=== PATIENT | female | born 1950 | race Caucasian/White ===

== ENCOUNTER 2017-04-28 07:26 | Emergency (ER) | payer BC ==
[~2017-04-28] VITALS: Ht 172.7 cm; Wt 95.0 kg
[~2017-04-28 07:26] MED LIST: (None)3.5 GM OP; ALLEGRA180 MG OR; ALLOPURINOL100 MG PO; ASA LOW DOSE81 MG OR; CENESTIN1.25 MG OR; DILTIAZEM180 M1 PO; DIOVAN HC1 PO; FISH OIL1000 MG OR; FLUOXETINE20 MG PO; GENTAMICIN15 ML/BTL OP; GLIMEPIRIDE4 MG PO; ISOSORB MONO30 MG PO; JANUMET1 TA1 PO; LOPRESSOR50 MG OR; LOTREL1 CA1 OR; LYRICA75 MG OR; METFORMIN1000 MG OR; METOPROL TAR25 MG PO; NEURONTIN300 MG OR; PERCOCET 5/325M1 TAB OR; PRAVACHOL40 MG OR; TESSALON PER100 MG PO; THERACRAN650 MG PO; VOLTAREN75 MG OR; ZANTAC150 M1 OR; ZITHROMAX250 MG PO
[2017-04-28] MEDS ORDERED: ASPIRIN81 MG PO (07:37)
[2017-04-28] MEDS ORDERED: PLAVIX75 MG PO (07:38)
[2017-04-28] MEDS ORDERED: FLUOXETINE20 MG PO (07:42)
[2017-04-28] MEDS ORDERED: PRAVASTATIN SOD10 MG PO (07:43)
[2017-04-28] MEDS ORDERED: HYDRALAZINE50 MG PO (07:45)
[2017-04-28] MEDS ORDERED: AMBIEN5 MG PO (07:45)
[2017-04-28 08:27] VITALS: BP 183/99
== END 2017-04-28 08:36 | disposition home or self-care (01) | DRG 921 ==
LOC: ED 07:26
DX: L76.21 Postprocedural hemorrhage of skin and subcutaneous tissue following a dermatologic procedure (principal); I10 Essential (primary) hypertension; E11.9 Type 2 diabetes mellitus without complications; E78.5 Hyperlipidemia, unspecified; Y83.8 Other surgical procedures as the cause of abnormal reaction of the patient, or of later complication, without mention of misadventure at the time of the procedure; Z86.73 Personal history of transient ischemic attack (TIA), and cerebral infarction without residual deficits; Z79.02 Long term (current) use of antithrombotics/antiplatelets; Z85.820 Personal history of malignant melanoma of skin

== ENCOUNTER 2019-08-18 00:41 | Emergency (ER) | payer BC ==
[~2019-08-18] VITALS: Ht 172.7 cm; Wt 93.2 kg
[~2019-08-18 00:41] MED LIST changes: +AMBIEN5 MG PO; +ASPIRIN81 MG PO; +HYDRALAZINE50 MG PO; +PLAVIX75 MG PO; +PRAVASTATIN SOD10 MG PO
[2019-08-18] MEDS ORDERED: FISH OIL1 CAP PO (01:13)
[2019-08-18] MEDS ORDERED: ESTER-C500 M2 PO (01:13)
[2019-08-18] MEDS ORDERED: LUNESTA3 MG PO (01:14)
[2019-08-18] MEDS ORDERED: HYDRALAZINE HYD50 MG PO (01:15)
[2019-08-18] MEDS ORDERED: ISOSORB MONO120 MG PO (01:15)
[2019-08-18] MEDS ORDERED: LEVOCETIRIZINE D5 MG PO (01:16)
[2019-08-18] MEDS ORDERED: PROTONIX40 MG PO (01:17)
[2019-08-18] MEDS ORDERED: METOPROL TAR100 MG PO (02:41)
[2019-08-18] MEDS ORDERED: BENICAR40 MG PO (02:41)
[2019-08-18 04:00] VITALS: BP 101/60
== END 2019-08-18 04:00 | disposition home or self-care (01) | DRG 305 ==
LOC: ED 00:41
DX: I10 Essential (primary) hypertension (principal)
CPT/HCPCS: J2060

== ENCOUNTER 2021-02-06 11:37 | Observation (INO) | payer BC ==
[~2021-02-06] VITALS: Ht 172.7 cm; Wt 106.0 kg
[~2021-02-06 11:37] MED LIST changes: +BENICAR40 MG PO; +ESTER-C500 M2 PO; +FISH OIL1 CAP PO; +HYDRALAZINE HYD50 MG PO; +ISOSORB MONO120 MG PO; +LEVOCETIRIZINE D5 MG PO; +LUNESTA3 MG PO; +METOPROL TAR100 MG PO; +PROTONIX40 MG PO
[2021-02-06 13:14] LABS: HEMATOCRIT 42.8 % (37.0-47.0); HEMOGLOBIN 13.8 g/dl (12.0-16.0); IMMATURE GRANULOCYTES 0.4 % (0.0-5.0); MEAN CELL VOLUME 89.2 fL CALC (80.0-100.0); MEAN CORPUSCULAR HGB 28.8 pG CALC (26.0-32.0); MEAN CORPUSCULAR HGB CONC 32.2 g/dL CAL (32.0-36.0); NEUT# 6.3 thou/uL (2.00-7.15); RED BLOOD COUNT 4.8 mill/uL (4.20-5.60); RED CELL DISTRI WIDTH 12.9 % (11.5-15.5)
[2021-02-06 13:43] LABS: ALBUMIN 4.1 g/dL (3.2-5.0); ALKALINE PHOSPHATASE 54 u/l (38-126); ANION GAP 16 (6-22 (CALC)); BILIRUBIN, TOTAL 0.6 mg/dL (0.0-1.4); BUN 17 mg/dL (8-23); BUN/CREATININE RATIO 17 (12-20 (CALC)); CARBON DIOXIDE 25 mmol/l (22-30); CHLORIDE 98 mmol/l (95-108); GFR 55 ML/MIN (>=60 (CALC)); GFR FOR AFR.AMER. > 60 ML/MIN (>=60 (CALC)); POTASSIUM 4.2 mmol/l (3.5-5.1); SGOT/AST 23 u/l (9-36); SODIUM 134 mmol/l (137-146); TOTAL PROTEIN 6.6 g/dL (6.3-8.2)
[2021-02-06 17:30] VITALS: BP 162/87
[2021-02-06] MEDS ORDERED: FISH OIL1 CAP PO (18:01)
[2021-02-06] MEDS ORDERED: AMLODIPINE BESY10 MG PO (18:01)
[2021-02-06] MEDS ORDERED: AMARYL2 MG PO (18:02)
[2021-02-06] MEDS ORDERED: MAG OXIDE400 MG PO (18:03)
[2021-02-06] MEDS ORDERED: ISOSORB MONO120 MG PO (18:03)
[2021-02-06] MEDS ORDERED: METFORMIN HCL1000 MG PO (18:04)
[2021-02-06] MEDS ORDERED: PROBIOTI3 PO (18:06)
[2021-02-06] MEDS ORDERED: OLMESARTAN MEDO40 MG PO (18:06)
[2021-02-06] MEDS ORDERED: TRULICITY1.5 MG/0.5 (18:07)
[2021-02-06] MEDS ORDERED: ZOLPIDEM5 M1 PO (18:07)
[2021-02-06 19:32] VITALS: BP 127/71
[2021-02-06 23:14] LABS: URINE BILIRUBIN - DIPSTICK NEGATIVE (NEGATIVE); URINE COLOR YELLOW; URINE GLUCOSE - DIPSTICK NEGATIVE (NEGATIVE); URINE KETONE NEGATIVE (NEGATIVE); URINE LEUK ESTERASE TRACE (NEGATIVE); URINE PROTEIN - DIPSTICK NEGATIVE (NEG-TRACE); URINE SPECIFIC GRAVITY 1.015; URINE UROBILINOGEN - DIPSTICK 0.2 E.U./dL (0.2)
[2021-02-06 23:16] LABS: URINE BLOOD DIPSTICK NEGATIVE (NEGATIVE); URINE NITRITE - DIPSTICK POSITIVE (Negative)
[2021-02-06 23:21] LABS: URINE BACTERIA MANY hpf; URINE EPITHELIAL CELLS FEW EPI/hpf (0-FEW)
[2021-02-07] VITALS (7 sets, daily range): BP systolic 128–167; BP diastolic 67–90
[2021-02-07 06:15] LABS: HEMATOCRIT 44.4 % (37.0-47.0); HEMOGLOBIN 14.1 g/dl (12.0-16.0); IMMATURE GRANULOCYTES 0.4 % (0.0-5.0); MEAN CELL VOLUME 88.3 fL CALC (80.0-100.0); MEAN CORPUSCULAR HGB CONC 31.8 g/dL CAL (32.0-36.0); NEUT# 4.02 thou/uL (2.00-7.15); RED BLOOD COUNT 5.03 mill/uL (4.20-5.60); RED CELL DISTRI WIDTH 13.2 % (11.5-15.5)
[2021-02-07 06:35] LABS: CHOLESTEROL HDL RATIO 4.9 (<4.4 (CALC)); MAGNESIUM 1.6 mg/dL (1.6-2.3)
[2021-02-07] MEDS ORDERED: KEFLEX500 MG PO (13:08)
== END 2021-02-07 11:20 | disposition home or self-care (01) | DRG 312 ==
LOC: ED 11:37 → ED-I 13:56 → ED 14:12 → MS2 14:13
PROVIDERS: Family Medicine; Nurse Practitioner; ADMIT Internal Medicine; ATTEND Internal Medicine
PROC: 0HQ1XZZ Repair Face Skin, External Approach (ICD-10-PCS; principal; 2021-02-06)
DX: R55 Syncope and collapse (principal); N39.0 Urinary tract infection, site not specified; S01.111A Laceration without foreign body of right eyelid and periocular area, initial encounter; I10 Essential (primary) hypertension; E11.9 Type 2 diabetes mellitus without complications; I25.10 Atherosclerotic heart disease of native coronary artery without angina pectoris; F41.9 Anxiety disorder, unspecified; E78.5 Hyperlipidemia, unspecified; K21.9 Gastro-esophageal reflux disease without esophagitis; D32.0 Benign neoplasm of cerebral meninges; W18.11XA Fall from or off toilet without subsequent striking against object, initial encounter; Y92.89 Other specified places as the place of occurrence of the external cause; Z86.73 Personal history of transient ischemic attack (TIA), and cerebral infarction without residual deficits; Z79.02 Long term (current) use of antithrombotics/antiplatelets; Z20.822 Contact with and (suspected) exposure to COVID-19
CPT/HCPCS: G0378; J1650

== ENCOUNTER 2021-02-13 | Emergency (ER) | payer BC ==
[~2021-02-13] MED LIST changes: +AMARYL2 MG PO; +AMLODIPINE BESY10 MG PO; +KEFLEX500 MG PO; +MAG OXIDE400 MG PO; +METFORMIN HCL1000 MG PO; +OLMESARTAN MEDO40 MG PO; +PROBIOTI3 PO; +TRULICITY1.5 MG/0.5; +ZOLPIDEM5 M1 PO
[2021-02-13] MEDS ORDERED: GENTAMICIN SULF5 ML OD (12:16)
== END 2021-02-13 12:18 | disposition home or self-care (01) | DRG 950 ==
DX: S01.91XD Laceration without foreign body of unspecified part of head, subsequent encounter (principal); H10.9 Unspecified conjunctivitis; E11.9 Type 2 diabetes mellitus without complications; I10 Essential (primary) hypertension; Z86.73 Personal history of transient ischemic attack (TIA), and cerebral infarction without residual deficits; Z79.84 Long term (current) use of oral hypoglycemic drugs; W19.XXXD Unspecified fall, subsequent encounter

== ENCOUNTER 2021-12-17 17:46 | Emergency (ER) | payer BC ==
[~2021-12-17] VITALS: Ht 172.7 cm; Wt 95.0 kg
[~2021-12-17 17:46] MED LIST changes: +GENTAMICIN SULF5 ML OD
[2021-12-17] MEDS ORDERED: BACTRIM DS1 TAB PO (18:57)
[2021-12-17] MEDS ORDERED: OMNICEF300 M1 PO (18:57)
[2021-12-17 19:05] VITALS: BP 143/82
== END 2021-12-17 19:20 | disposition home or self-care (01) | DRG 603 ==
LOC: ED 17:46
DX: L03.032 Cellulitis of left toe (principal); E11.9 Type 2 diabetes mellitus without complications; I10 Essential (primary) hypertension; E66.9 Obesity, unspecified; Z86.73 Personal history of transient ischemic attack (TIA), and cerebral infarction without residual deficits; Z79.4 Long term (current) use of insulin

== ENCOUNTER 2022-06-24 10:56 | Emergency (ER) | payer BC ==
[~2022-06-24] VITALS: Ht 172.7 cm; Wt 88.6 kg
[2022-06-24] VITALS (8 sets, daily range): BP systolic 119–141; BP diastolic 66–96
[~2022-06-24 10:56] MED LIST changes: +BACTRIM DS1 TAB PO; +OMNICEF300 M1 PO
[2022-06-24] MEDS ORDERED: FIORICET 50-3001 CAP PO (13:25)
== END 2022-06-24 14:11 | disposition home or self-care (01) | DRG 605 ==
LOC: ED 10:56
DX: S01.01XA Laceration without foreign body of scalp, initial encounter (principal); S09.90XA Unspecified injury of head, initial encounter; Z79.01 Long term (current) use of anticoagulants

== ENCOUNTER 2022-11-07 14:09 | Emergency (ER) | payer BC ==
[~2022-11-07] VITALS: Ht 172.7 cm; Wt 88.1 kg
[~2022-11-07 14:09] MED LIST changes: +FIORICET 50-3001 CAP PO
[2022-11-07 15:15] VITALS: BP 138/88
[2022-11-07 17:18] VITALS: BP 138/88
== END 2022-11-07 17:21 | disposition home or self-care (01) | DRG 552 ==
LOC: ED 14:09
DX: M54.2 Cervicalgia (principal); M25.521 Pain in right elbow; M25.531 Pain in right wrist

== ENCOUNTER 2023-11-07 15:32 | Emergency (ER) | payer BC | END 2023-11-07 16:40 | disposition left against medical advice (07) | DRG 951 | LOC: ED 15:32 → LWOBS 16:40 | DX: Z53.21 Procedure and treatment not carried out due to patient leaving prior to being seen by health care provider (principal) ==

== ENCOUNTER 2023-12-01 13:19 | Emergency (ER) | payer BC ==
[~2023-12-01] VITALS: Ht 172.7 cm; Wt 89.0 kg
[2023-12-01 14:30] VITALS: BP 123/77
[2023-12-01] MEDS ORDERED: AMOX/K CLAV875 M1 PO (14:36)
[2023-12-01] MEDS ORDERED: ZPAK PO (14:36)
== END 2023-12-01 15:00 | disposition home or self-care (01) | DRG 605 ==
LOC: ED 13:19
DX: S50.812A Abrasion of left forearm, initial encounter (principal); I10 Essential (primary) hypertension; E11.9 Type 2 diabetes mellitus without complications; W55.03XA Scratched by cat, initial encounter; Z86.73 Personal history of transient ischemic attack (TIA), and cerebral infarction without residual deficits; Z79.84 Long term (current) use of oral hypoglycemic drugs

== ENCOUNTER 2023-12-23 11:58 | Emergency (ER) | payer BC ==
[~2023-12-23] VITALS: Ht 172.7 cm; Wt 89.8 kg
[~2023-12-23 11:58] MED LIST changes: +AMOX/K CLAV875 M1 PO; +ZPAK PO
[2023-12-23 15:44] VITALS: BP 156/91
== END 2023-12-23 15:44 | disposition home or self-care (01) | DRG 605 ==
LOC: ED 11:58
DX: S80.01XA Contusion of right knee, initial encounter (principal); S83.91XA Sprain of unspecified site of right knee, initial encounter; M17.11 Unilateral primary osteoarthritis, right knee; E11.9 Type 2 diabetes mellitus without complications; I10 Essential (primary) hypertension; W01.0XXA Fall on same level from slipping, tripping and stumbling without subsequent striking against object, initial encounter; Z86.73 Personal history of transient ischemic attack (TIA), and cerebral infarction without residual deficits; Z79.84 Long term (current) use of oral hypoglycemic drugs